=== PATIENT | male | born 1940 | race Caucasian/White ===

== ENCOUNTER 2017-10-18 06:50 | Day surgery (SDC) | payer MEDICARE, BC ==
[2017-10-17 09:59] VITALS: BP 144/105
[~2017-10-18] VITALS: Ht 182.9 cm; Wt 144.0 kg
[~2017-10-18 06:50] MED LIST: ALLO100T30 PO; CHOL100011 PO; FURO40TA6 PO; GLIP10TA13 PO; GLIP5TAB10 PO; GLUC15006 PO; GLYB2.5T2 PO; HYDR-3245 PO; HYDR25TA6 PO; LABE100T3 PO; OMEP20TA62 PO; SERT25TA3 PO; SIMV10TA3 PO; WARF5TAB7 PO
[2017-10-18] MEDS ORDERED: LACTATED RINGERS 1,000 ML IV SCH (07:53)
[2017-10-18] MEDS ORDERED: PROPOFOL 10 MG/ML, 20ML ONE ×2 (08:43)
[2017-10-18 08:48] LABS: INTERNATIONAL NORMALIZED RATIO 1.12 (0.93-1.1); PROTHROMBIN TIME 11.5 Seconds (9.6-11.5)
== END 2017-10-18 10:30 ==
LOC: OUT 06:50
PROVIDERS: ATTEND Internal Medicine Gastroenterology
DX: K44.9 Diaphragmatic hernia without obstruction or gangrene (principal); K31.89 Other diseases of stomach and duodenum; K29.50 Unspecified chronic gastritis without bleeding; E11.9 Type 2 diabetes mellitus without complications; I10 Essential (primary) hypertension; Z93.3 Colostomy status; Z96.643 Presence of artificial hip joint, bilateral; Z98.890 Other specified postprocedural states; Z88.6 Allergy status to analgesic agent
CPT/HCPCS: 36415; 43239; 43248; 82962; 85610; 85730; 88305; 93005; C1725; J2704; J7120; 88342; G0461

== ENCOUNTER 2019-01-30 08:48 | Day surgery (SDC) | payer MEDICARE, BC ==
[~2019-01-30] VITALS: Ht 180.3 cm; Wt 148.0 kg
[~2019-01-30 08:48] MED LIST changes: -LABE100T3 PO; +LABE100T6 PO; +WARF-36 PO; -WARF5TAB7 PO
[2019-01-30 09:33] VITALS: BP 190/102
[2019-01-30] MEDS ORDERED: LACTATED RINGERS 1,000 ML IV SCH (09:41)
[2019-01-30] MEDS ORDERED: LANTUS SQ (09:46)
[2019-01-30] MEDS ORDERED: ATORVASTATIN PO (09:46)
[2019-01-30] MEDS ORDERED: CRANBERRY PO (09:51)
[2019-01-30] MEDS ORDERED: TAMS-11 PO (09:51)
[2019-01-30] MEDS ORDERED: NOVOLIN R SQ (09:51)
[2019-01-30] MEDS ORDERED: LEVEMIR SQ (09:51)
[2019-01-30] MEDS ORDERED: XOPENEX (09:52)
[2019-01-30 10:38] LABS: INTERNATIONAL NORMALIZED RATIO 1.12 (0.93-1.1); PROTHROMBIN TIME 11.7 Seconds (9.6-11.5)
[2019-01-30 10:41] LABS: ALANINE AMINOTRANSFERASE 27 U/L (12-78); ALBUMIN 3.5 g/dL (3.4-5.0); ANION GAP 3 mmol/L (5-15); CALCIUM 9.1 mg/dL (8.5-10.1); CHLORIDE 107 mmol/L (98-107); CREATININE 1.29 mg/dL (0.7-1.3)
[2019-01-30 10:43] LABS: ALKALINE PHOSPHATASE 121 U/L (45-117); BILIRUBIN,TOTAL 1.2 mg/dL (0.2-1.0); TOTAL PROTEIN 6.1 g/dL (6.4-8.2)
[2019-01-30] MEDS ORDERED: PROPOFOL 10 MG/ML, 20ML ONE (10:49)
[2019-01-30] MEDS ORDERED: METOPROLOL 1 MG/ML, 5ML IV PRN (11:00)
[2019-01-30] MEDS ORDERED: ACETAMINOPHEN 325 MG TABLET PO PRN (11:00)
[2019-01-30] MEDS ORDERED: FENTANYL PF 100 MCG/2ML IV PRN (11:00)
[2019-01-30] MEDS ORDERED: MIDAZOLAM 1 MG/ML, 2ML IV PRN (11:00)
[2019-01-30] MEDS ORDERED: OXYcodone 5 MG/5 ML ORAL.SOL UDC PO PRN (11:00)
[2019-01-30] MEDS ORDERED: ALBUTEROL/IPRATROPIUM 2.5MG/0.5MG, 3 ML NPPB PRN (11:00)
== END 2019-01-30 13:10 | disposition home or self-care (01) ==
LOC: OUT 08:48
PROVIDERS: ATTEND Internal Medicine Gastroenterology
DX: K22.2 Esophageal obstruction (principal); K44.9 Diaphragmatic hernia without obstruction or gangrene; K21.9 Gastro-esophageal reflux disease without esophagitis; G47.33 Obstructive sleep apnea (adult) (pediatric); E11.9 Type 2 diabetes mellitus without complications; I10 Essential (primary) hypertension; E78.5 Hyperlipidemia, unspecified; J44.9 Chronic obstructive pulmonary disease, unspecified; E66.01 Morbid (severe) obesity due to excess calories; Z68.42 Body mass index [BMI] 45.0-49.9, adult; Z79.899 Other long term (current) drug therapy; Z79.01 Long term (current) use of anticoagulants; Z79.84 Long term (current) use of oral hypoglycemic drugs
CPT/HCPCS: 36415; 43248; 80053; 82962; 85610; 93005; J2704; J7120

== ENCOUNTER 2019-09-16 21:55 | Inpatient (IN) | payer MEDICARE, BC ==
[~2019-09-16] VITALS: Ht 182.9 cm; Wt 155.6 kg
[~2019-09-16 21:55] MED LIST changes: +AMLO2.5T5 PO; +AMOX1TAB12 PO; +ATORVASTATIN PO; +AZIT250T PO; +CEPH-376 PO; +CRANBERRY PO; +GABA-826 PO; +LANTUS SQ; +LEVEMIR SQ; +NOVOLIN R SQ; +TAMS-11 PO; +TOBR5DRO2 EACHEYE; +WARF7.5T46 PO; +XOPENEX
--- NOTE | 2019-09-16 22:15 | NUR ---
PT BIB EMS FROM [facility] WITH C/O "POSSIBLE IMPENDING UROSEPSIS". PT REPORTS NO PAIN WITH URINATION, BUT DOES HAVE DIFFICULTY URINATING. REPORTS SOB. PT DENIES N/V/D. HX OF AFIB AND CARDIOMEGALY. PT CONNECTED TO ALL MONITORING, ALL SAFETY MEASURES IN PLACE. CALL LIGHT WITHIN REACH.
[2019-09-16] MEDS ORDERED: SERT-238 PO (22:28)
[2019-09-16] MEDS ORDERED: AMLO2.5T5 PO (22:28)
--- NOTE | 2019-09-16 23:04 | NUR ---
REPORT GIVEN TO ROSIO SINGH
[2019-09-16 23:33] VITALS: BP 149/81
[2019-09-17] MEDS ORDERED: ACETAMINOPHEN 325 MG TABLET PO PRN (01:00)
[2019-09-17] MEDS ORDERED: hydrALAzine 20 MG/ML, 1ML IVPush PRN (01:00)
[2019-09-17] MEDS ORDERED: ENALAPRILAT 1.25 MG/ML, 2ML IVPush PRN (01:00)
[2019-09-17] MEDS ORDERED: ONDANSETRON 2MG/ML, 2ML IVPush PRN (01:00)
[2019-09-17] MEDS ORDERED: DOCUSATE 100 MG CAPSULE PO PRN (01:00)
[2019-09-17] MEDS ORDERED: ONDANSETRON ODT 4 MG PO PRN (01:00)
[2019-09-17 02:50] VITALS: BP 136/75
[2019-09-17] MEDS: LACTATED RINGERS 1,000 ML IV SCH ×2 (03:14→14:24)
[2019-09-17] MEDS ORDERED: DEXTROSE 4 GM TAB.CHEW PO PRN (03:30)
[2019-09-17] MEDS ORDERED: GLUCAGON 1 MG IM PRN (03:30)
[2019-09-17] MEDS ORDERED: DEXTROSE 50%, 50ML SYRINGE IVPush PRN (03:30)
[2019-09-17] MEDS: INSULIN LISPRO 100 UNITS/ML, PEN SQ-INSULIN SCH ×5 (04:46→21:22)
[2019-09-17 05:42] LABS: BASOPHILS # (AUTO) 0.02 x10^3/uL (0-0.1); BASOPHILS % (AUTO) 0 % (0-1); EOSINOPHILS # (AUTO) 0.08 x10^3/uL (0-0.4); EOSINOPHILS % (AUTO) 1 % (1-7); LYMPHOCYTES # (AUTO) 0.98 x10^3/uL (1-3.4); LYMPHOCYTES % (AUTO) 11 % (22-44); MD NO; MEAN CORPUSCULAR HEMOGLOBIN 31.8 pg (27.5-34.5); MEAN CORPUSCULAR HGB CONC 32.7 g/dL (33.2-36.2); MEAN CORPUSCULAR VOLUME 97.2 fL (81-97); MEAN PLATELET VOLUME 7.6 fL (7.4-10.4); MONOCYTES % (AUTO) 8 % (2-9); NEUTROPHILS % (AUTO) 81 % (42-75); PLATELET COUNT 134 x10^3/uL (130-400); RED BLOOD COUNT 4.23 x10^6/uL (4.38-5.82); RED CELL DISTRIBUTION WIDTH 14.6 % (9.4-14.8)
[2019-09-17 05:46] LABS: INTERNATIONAL NORMALIZED RATIO 2.26 (0.93-1.1)
[2019-09-17 05:54] LABS: ANION GAP 5 mmol/L (5-15); CALCIUM 9.2 mg/dL (8.5-10.1); CHLORIDE 103 mmol/L (98-107)
[2019-09-17 05:57] LABS: CREATININE 1.19 mg/dL (0.7-1.3)
[2019-09-17] MEDS: HYDROcodone/APAP 10/325 MG TABLET PO SCH ×4 (06:07→21:18)
[2019-09-17 06:10] VITALS: BP 133/81
[2019-09-17] MEDS: TAMSULOSIN 0.4 MG CAP.ER.24H PO SCH (08:31)
[2019-09-17] MEDS: AMLODIPINE 2.5 MG TABLET PO SCH (08:32)
[2019-09-17] MEDS: LACTOBACILLUS CHEW TABLET PO SCH ×3 (08:32→21:17)
[2019-09-17] MEDS: OMEPRAZOLE 20 MG CAPSULE.DR PO SCH (08:32)
[2019-09-17] MEDS: SERTRALINE 100MG TABLET PO SCH (08:33)
[2019-09-17] MEDS: ALLOPURINOL 100 MG TABLET PO SCH ×2 (08:33→21:18)
[2019-09-17] MEDS: ATORVASTATIN 20 MG TABLET PO SCH (08:33)
[2019-09-17] MEDS: LABETALOL 100 MG TABLET PO SCH ×2 (08:33→21:18)
[2019-09-17] MEDS: CHOLECALCIFEROL 1,000 UNIT TABLET PO SCH ×2 (08:33→21:17)
[2019-09-17] MEDS: SODIUM CHLORIDE FLUSH 10ML SYR IVF SCH ×2 (08:33→21:25)
[2019-09-17] MEDS: PRIMIDONE 50 MG TABLET PO SCH (12:48)
[2019-09-17 13:16] VITALS: BP 114/65
[2019-09-17] MEDS ORDERED: WARFARIN 5 MG TABLET PO-COUM ONE (18:00)
[2019-09-17 19:54] VITALS: BP 133/88
[2019-09-17] MEDS ORDERED: CEFTRIAXONE PMX 2GM/50ML 50 ML IV SCH (20:00)
[2019-09-17] MEDS ORDERED: FUROSEMIDE 40 MG TABLET PO SCH (21:00)
[2019-09-17] MEDS ORDERED: PRIMIDONE 50 MG TABLET PO SCH (21:00)
[2019-09-17] MEDS ORDERED: INSULIN GLARGINE 100 UNITS/ML, PEN SQ-INSULIN SCH (21:00)
[2019-09-18 01:57] VITALS: BP 138/81
[2019-09-18 06:37] VITALS: BP 159/64
[2019-09-18] MEDS: HYDROcodone/APAP 10/325 MG TABLET PO SCH ×2 (06:43→11:23)
[2019-09-18 06:55] LABS: ANION GAP 7 mmol/L (5-15); CALCIUM 8.8 mg/dL (8.5-10.1); CHLORIDE 103 mmol/L (98-107)
[2019-09-18 06:58] LABS: ALANINE AMINOTRANSFERASE 25 U/L (12-78); ALKALINE PHOSPHATASE 110 U/L (45-117); BILIRUBIN,TOTAL 0.5 mg/dL (0.2-1.0); CREATININE 1.27 mg/dL (0.7-1.3); TOTAL PROTEIN 5.7 g/dL (6.4-8.2)
[2019-09-18 07:32] LABS: INTERNATIONAL NORMALIZED RATIO 1.79 (0.93-1.1); PROTHROMBIN TIME 18.4 Seconds (9.6-11.5)
[2019-09-18] MEDS: CHOLECALCIFEROL 1,000 UNIT TABLET PO SCH (08:13)
[2019-09-18] MEDS: TAMSULOSIN 0.4 MG CAP.ER.24H PO SCH (08:13)
[2019-09-18] MEDS: LACTOBACILLUS CHEW TABLET PO SCH (08:13)
[2019-09-18] MEDS: ATORVASTATIN 20 MG TABLET PO SCH (08:13)
[2019-09-18] MEDS: SERTRALINE 100MG TABLET PO SCH (08:13)
[2019-09-18] MEDS: OMEPRAZOLE 20 MG CAPSULE.DR PO SCH (08:13)
[2019-09-18] MEDS: LABETALOL 100 MG TABLET PO SCH (08:14)
[2019-09-18] MEDS: INSULIN LISPRO 100 UNITS/ML, PEN SQ-INSULIN SCH ×2 (08:14→11:23)
[2019-09-18] MEDS: PRIMIDONE 50 MG TABLET PO SCH ×2 (08:14→11:24)
[2019-09-18] MEDS: ALLOPURINOL 100 MG TABLET PO SCH (08:14)
[2019-09-18] MEDS: AMLODIPINE 2.5 MG TABLET PO SCH (08:15)
[2019-09-18] MEDS: SODIUM CHLORIDE FLUSH 10ML SYR IVF SCH (08:15)
[2019-09-18] MEDS: LACTATED RINGERS 1,000 ML IV SCH (08:15)
[2019-09-18] MEDS ORDERED: FUROSEMIDE 20 MG TABLET PO SCH (09:00)
[2019-09-18] MEDS ORDERED: CEFD300C37 PO (13:10)
[2019-09-18] MEDS ORDERED: WARFARIN 7.5 MG TABLET PO-COUM SCH (18:00)
== END 2019-09-18 14:08 | disposition home or self-care (01) | DRG 871 ==
LOC: ED 22:04 → EDIP 22:58 → 4EST 23:35 → DCLOUNGE 09-18 13:50
PROVIDERS: ADMIT Internal Medicine; ATTEND Internal Medicine
DX: A41.9 Sepsis, unspecified organism (principal); J96.20 Acute and chronic respiratory failure, unspecified whether with hypoxia or hypercapnia; Z68.42 Body mass index [BMI] 45.0-49.9, adult; N39.0 Urinary tract infection, site not specified; I42.9 Cardiomyopathy, unspecified; I50.9 Heart failure, unspecified; I48.91 Unspecified atrial fibrillation; E66.01 Morbid (severe) obesity due to excess calories; E11.9 Type 2 diabetes mellitus without complications; I11.0 Hypertensive heart disease with heart failure; Z82.49 Family history of ischemic heart disease and other diseases of the circulatory system; I27.20 Pulmonary hypertension, unspecified; J44.9 Chronic obstructive pulmonary disease, unspecified; Z66 Do not resuscitate; Z79.01 Long term (current) use of anticoagulants; Z85.46 Personal history of malignant neoplasm of prostate; Z87.01 Personal history of pneumonia (recurrent); Z88.5 Allergy status to narcotic agent
CPT/HCPCS: 36415; 71045; 80048; 80053; 82962; 85025; 85610; 93005; 93306; 99285; G0378; J0696; J1815; J7120

== ENCOUNTER 2019-10-03 18:30 | Observation (INO) | payer MEDICARE, BC ==
[~2019-10-03] VITALS: Ht 182.9 cm; Wt 137.1 kg
[~2019-10-03 18:30] MED LIST changes: +CEFD300C37 PO; +SERT-238 PO
--- NOTE | 2019-10-03 18:59 | NUR ---
PT CAME IN CO OF FEVER ALL DAY. WAS TREATED FOR SEPSIS AT HOSPITAL ON Sep AND WAS ADMITTED FOR 3 DAYS. PT IS CONCERNED THAT HE MAY BECOME SEPTOIC AGAIN. PT HAS PROSTATE CANCER. PT IS ON 2LITERS VIA NC AND IS 96% WHICH IS HIS BASELINE. BP 168/78. HR 69.
[2019-10-03] MEDS ORDERED: ACETAMINOPHEN 325 MG TABLET ONE (19:44)
[2019-10-03] MEDS ORDERED: ACETAMINOPHEN 325 MG TABLET PO ONE (20:00)
[2019-10-03 20:13] LABS: MICROSCOPIC NOT IND
[2019-10-03 20:14] LABS: CULTURE INDICATED? NO
[2019-10-03 20:15] LABS: MEAN CORPUSCULAR HEMOGLOBIN 31.8 pg (27.5-34.5); MEAN CORPUSCULAR HGB CONC 32.6 g/dL (33.2-36.2); MEAN CORPUSCULAR VOLUME 97.5 fL (81-97); MEAN PLATELET VOLUME 7.6 fL (7.4-10.4); PLATELET COUNT 161 x10^3/uL (130-400); RED BLOOD COUNT 4.34 x10^6/uL (4.38-5.82); RED CELL DISTRIBUTION WIDTH 14.8 % (9.4-14.8)
[2019-10-03 20:25] LABS: INTERNATIONAL NORMALIZED RATIO 1.6 (0.93-1.1)
[2019-10-03 20:27] LABS: ALANINE AMINOTRANSFERASE 26 U/L (12-78); ALBUMIN 3.5 g/dL (3.4-5.0); ANION GAP 6 mmol/L (5-15); CALCIUM 8.8 mg/dL (8.5-10.1); CHLORIDE 101 mmol/L (98-107); CREATININE 1.21 mg/dL (0.7-1.3)
[2019-10-03 20:30] LABS: ALKALINE PHOSPHATASE 146 U/L (45-117); BILIRUBIN,TOTAL 0.9 mg/dL (0.2-1.0); MD YES; TOTAL PROTEIN 6.4 g/dL (6.4-8.2)
[2019-10-03 20:32] LABS: <PLATELET ESTIMATE> ADEQUATE; <PLT MORPHOLOGY> NORMAL PLT MORPH; <RBC MORPHOLOGY> NORMAL; BAND#(MANUAL) 0.17 x10^3/uL; BANDS%(MANUAL) 2 % (0-7); EOS#(MANUAL) 0.17 x10^3/uL (0.0-0.4); EOS% (MANUAL) 2 % (1-7); LYMPH#(MANUAL) 0.76 x10^3/uL (1-3.4); LYMPHS% (MANUAL) 9 % (22-44); MONOS% (MANUAL) 6 % (2-9); REACTIVE LYMPHS # (MANUAL) 0.08 x10^3/uL (0-0); REACTIVE LYMPHS % (MANUAL) 1 % (0-0); SEG#(MANUAL) 6.72 x10^3/uL (1.8-6.8); SEGS% (MANUAL) 80 % (42-75)
[2019-10-03] MEDS ORDERED: SODIUM CHLORIDE FLUSH 10ML SYR IVF PRN (21:30)
[2019-10-03] MEDS ORDERED: IBUPROFEN 600 MG TABLET PO PRN (22:00)
[2019-10-03] MEDS ORDERED: ENALAPRILAT 1.25 MG/ML, 1ML IVPush PRN (22:00)
[2019-10-03] MEDS ORDERED: ACETAMINOPHEN 325 MG TABLET PO PRN (22:00)
--- NOTE | 2019-10-03 22:19 | NUR ---
REPORT GIVEN TO ROSIO PAPPAS
[2019-10-03] MEDS ORDERED: DEXTROSE 4 GM TAB.CHEW PO PRN (22:30)
[2019-10-03] MEDS ORDERED: DEXTROSE 50%, 50ML SYRINGE IVPush PRN (22:30)
[2019-10-03] MEDS ORDERED: GLUCAGON 1 MG IM PRN (22:30)
[2019-10-03] MEDS ORDERED: WARFARIN 5 MG TABLET PO-COUM ONE (23:45)
[2019-10-04 00:08] VITALS: BP 156/78
[2019-10-04] MEDS ORDERED: PRIMIDONE 50 MG TABLET PO ONE (01:30)
[2019-10-04] MEDS: HYDROcodone/APAP 10/325 MG TABLET PO PRN ×3 (01:36→20:40)
[2019-10-04 01:49] VITALS: BP 132/74
[2019-10-04 05:26] LABS: BASOPHILS # (AUTO) 0.05 x10^3/uL (0-0.1); BASOPHILS % (AUTO) 1 % (0-1); EOSINOPHILS # (AUTO) 0.15 x10^3/uL (0-0.4); EOSINOPHILS % (AUTO) 2 % (1-7); LYMPHOCYTES # (AUTO) 1.12 x10^3/uL (1-3.4); LYMPHOCYTES % (AUTO) 16 % (22-44); MD NO; MEAN CORPUSCULAR HEMOGLOBIN 31.6 pg (27.5-34.5); MEAN CORPUSCULAR HGB CONC 32.6 g/dL (33.2-36.2); MEAN CORPUSCULAR VOLUME 96.9 fL (81-97); MEAN PLATELET VOLUME 7.7 fL (7.4-10.4); MONOCYTES # (AUTO) 0.71 x10^3/uL (0.2-0.8); MONOCYTES % (AUTO) 10 % (2-9); NEUTROPHILS % (AUTO) 71 % (42-75); PLATELET COUNT 146 x10^3/uL (130-400); RED BLOOD COUNT 4.03 x10^6/uL (4.38-5.82); RED CELL DISTRIBUTION WIDTH 14.9 % (9.4-14.8)
[2019-10-04 05:31] LABS: INTERNATIONAL NORMALIZED RATIO 1.41 (0.93-1.1)
[2019-10-04 05:33] LABS: ANION GAP 7 mmol/L (5-15); CALCIUM 8.8 mg/dL (8.5-10.1); CHLORIDE 104 mmol/L (98-107); CREATININE 1.16 mg/dL (0.7-1.3)
[2019-10-04] MEDS ORDERED: HYDROcodone/APAP 10/325 MG TABLET PO SCH (06:00)
[2019-10-04 07:40] VITALS: BP 164/80
[2019-10-04] MEDS: TAMSULOSIN 0.4 MG CAP.ER.24H PO SCH (08:40)
[2019-10-04] MEDS: PRIMIDONE 50 MG TABLET PO SCH ×2 (08:40→20:40)
[2019-10-04] MEDS: ALLOPURINOL 100 MG TABLET PO SCH ×2 (08:41→20:41)
[2019-10-04] MEDS: FUROSEMIDE 40 MG TABLET PO SCH ×2 (08:41→20:41)
[2019-10-04] MEDS: SERTRALINE 100MG TABLET PO SCH (08:41)
[2019-10-04] MEDS: AMLODIPINE 2.5 MG TABLET PO SCH (08:42)
[2019-10-04] MEDS: SODIUM CHLORIDE FLUSH 10ML SYR IVF SCH ×2 (08:43→20:41)
[2019-10-04] MEDS: INSULIN LISPRO 100 UNITS/ML, PEN SQ-INSULIN SCH ×4 (08:45→20:39)
[2019-10-04] MEDS ORDERED: LABETALOL 100 MG TABLET PO SCH (09:00)
[2019-10-04 13:22] VITALS: BP 146/80
[2019-10-04] MEDS ORDERED: WARFARIN 5 MG TABLET PO-COUM SCH (18:00)
[2019-10-04 20:35] VITALS: BP 169/80
[2019-10-04] MEDS: LABETALOL 100 MG TABLET PO SCH (20:41)
[2019-10-05 01:48] VITALS: BP 129/92
[2019-10-05] MEDS: PRIMIDONE 50 MG TABLET PO SCH (05:18)
[2019-10-05] MEDS: HYDROcodone/APAP 10/325 MG TABLET PO PRN (05:22)
[2019-10-05 05:31] LABS: INTERNATIONAL NORMALIZED RATIO 1.45 (0.93-1.1); PROTHROMBIN TIME 15.4 Seconds (9.6-11.5)
[2019-10-05 05:34] LABS: BASOPHILS # (AUTO) 0.01 x10^3/uL (0-0.1); BASOPHILS % (AUTO) 0 % (0-1); EOSINOPHILS # (AUTO) 0.19 x10^3/uL (0-0.4); EOSINOPHILS % (AUTO) 3 % (1-7); LYMPHOCYTES # (AUTO) 1.25 x10^3/uL (1-3.4); LYMPHOCYTES % (AUTO) 18 % (22-44); MD NO; MEAN CORPUSCULAR HEMOGLOBIN 31.8 pg (27.5-34.5); MEAN CORPUSCULAR HGB CONC 32.6 g/dL (33.2-36.2); MEAN CORPUSCULAR VOLUME 97.4 fL (81-97); MONOCYTES % (AUTO) 10 % (2-9); NEUTROPHILS # (AUTO) 4.67 x10^3/uL (1.8-6.8); NEUTROPHILS % (AUTO) 69 % (42-75); PLATELET COUNT 168 x10^3/uL (130-400); RED BLOOD COUNT 4.39 x10^6/uL (4.38-5.82); RED CELL DISTRIBUTION WIDTH 14.4 % (9.4-14.8)
[2019-10-05 05:36] LABS: ANION GAP 6 mmol/L (5-15); CHLORIDE 103 mmol/L (98-107)
[2019-10-05 05:38] LABS: CREATININE 1.12 mg/dL (0.7-1.3)
[2019-10-05 07:19] VITALS: BP 147/84
[2019-10-05] MEDS ORDERED: LABE100T6 PO (08:43)
[2019-10-05] MEDS: INSULIN LISPRO 100 UNITS/ML, PEN SQ-INSULIN SCH (08:51)
[2019-10-05] MEDS: FUROSEMIDE 40 MG TABLET PO SCH (08:51)
[2019-10-05] MEDS: LABETALOL 100 MG TABLET PO SCH (08:53)
[2019-10-05] MEDS: ALLOPURINOL 100 MG TABLET PO SCH (08:53)
[2019-10-05] MEDS: AMLODIPINE 2.5 MG TABLET PO SCH (08:53)
[2019-10-05] MEDS: SERTRALINE 100MG TABLET PO SCH (08:53)
[2019-10-05] MEDS: TAMSULOSIN 0.4 MG CAP.ER.24H PO SCH (08:54)
[2019-10-05] MEDS: SODIUM CHLORIDE FLUSH 10ML SYR IVF SCH (08:54)
[2019-10-05] MEDS ORDERED: WARFARIN 7.5 MG TABLET PO-COUM SCH (18:00)
== END 2019-10-05 10:42 | disposition home or self-care (01) ==
LOC: ED 21:09 → EDIP 21:17 → INTOOBSV 21:17 → 5SO 22:52 → DCLOUNGE 10-05 10:10
PROVIDERS: ADMIT Family Medicine; ATTEND Family Medicine
DX: R53.1 Weakness (principal); I48.20 Chronic atrial fibrillation, unspecified; I11.0 Hypertensive heart disease with heart failure; I50.20 Unspecified systolic (congestive) heart failure; E66.01 Morbid (severe) obesity due to excess calories; E11.610 Type 2 diabetes mellitus with diabetic neuropathic arthropathy; I42.9 Cardiomyopathy, unspecified; M10.9 Gout, unspecified; J44.9 Chronic obstructive pulmonary disease, unspecified; C61 Malignant neoplasm of prostate; F32.9 Major depressive disorder, single episode, unspecified; R62.7 Adult failure to thrive; Z66 Do not resuscitate; Z68.42 Body mass index [BMI] 45.0-49.9, adult; Z79.01 Long term (current) use of anticoagulants; Z79.899 Other long term (current) drug therapy; Z90.79 Acquired absence of other genital organ(s)
CPT/HCPCS: 36415; 70450; 71045; 80048; 80053; 81003; 82962; 83605; 83735; 84145; 85025; 85610; 87040; 93005; 96372; 97162; 99284; G0378; J1815